=== PATIENT | female | born 1985 | race Caucasian/White ===

== ENCOUNTER 2019-01-06 19:04 | Emergency (ER) | payer MEDICAID ==
[~2019-01-06] VITALS: Ht 157.5 cm; Wt 67.0 kg
[2019-01-06 19:22] VITALS: Ht 157.5 cm; Wt 67.0 kg
[2019-01-06] MEDS ORDERED: BEN25 PO (20:59)
[2019-01-06] MEDS ORDERED: PRED20TA PO (20:59)
[2019-01-06] MEDS ORDERED: predniSONE 20 MG TAB PO ONE (21:00)
[2019-01-06] MEDS ORDERED: DIPHENHYDRAMINE 50 MG INJ IM ONE (21:00)
--- NOTE | 2019-01-06 21:04 | ERD ---
ER Documentation Chief Complaint Chief Complaint gen body rash x 3 days HPI 33-year-old female presents with a itchy rash on her trunk and extremities for last 3 days. She denies any new foods. She is taking unspecified herbal remedy over the last few days. She also complains that she was around a lot of possible bugs or cockroaches in a house recently. She denies shortness of breath, fevers. ROS All systems reviewed and are negative except as per history of present illness. Medications Home Meds Active Scripts Prednisone* (Prednisone*) 20 Mg Tab, 40 MG PO DAILY for 4 Days, TAB Start January 07, 2019 Prov:KARISSA HOLT MD 01/06/19 Diphenhydramine Hcl* (Benadryl*) 25 Mg Cap, 25 MG PO Q6, #20 CAP Prov:KARISSA HOLT MD 01/06/19 Allergies Allergies: Coded Allergies: No Known Drug Allergies (Verified Allergy, Unknown, 01/06/19) PMhx/Soc Medical and Surgical Hx: pt denies Medical Hx, pt denies Surgical Hx Hx Alcohol Use: No Hx Substance Use: No Hx Tobacco Use: No Smoking Status: Never smoker FmHx Family History: No diabetes, No coronary disease, No other Physical Exam Vitals Vital Signs Date Temp Pulse Resp B/P (MAP) Pulse Ox O2 O2 Flow FiO2 Time Delivery Rate 01/06/19 98.0 72 18 123/82 98 19:22 (96) Physical Exam Const: No acute distress Head: Atraumatic Eyes: Normal Conjunctiva ENT: Normal External Ears, Nose and Mouth. Neck: Full range of motion. No meningismus. Resp: Clear to auscultation bilaterally Cardio: Regular rate and rhythm, no murmurs Abd: Soft, non tender, non distended. Normal bowel sounds Skin: No petechiae or purpura. Scattered maculopapular blanching rash on the trunk and extremities. No induration, streaking or vesicles. Back: No midline or flank tenderness Ext: No cyanosis, or edema Neur: Awake and alert Psych: Normal Mood and Affect Results 24 hrs Current Medications Medications Dose Sig/Artem Start Time Status Last (Trade) Ordered Route PRN Stop Time Admin Dose Reason Admin 25 mg ONCE ONCE 01/06/19 DC Diphenhydrami IM 21:00 ne HCl 01/06/19 21:01 (Benadryl) Prednisone 60 mg ONCE ONCE 01/06/19 DC (Prednisone) PO 21:00 01/06/19 21:01 Procedures/MDM Last 3 days. She has no signs of hypoxemia, rest distress, anaphylaxis, any signs or symptoms. She has no evidence of life-threatening rashes or purpura. She likely has a nonspecific allergic reaction or hives type reaction. She was treated with Benadryl 25 mg IM, prednisone 60 mg by mouth and will be continued on prednisone and Benadryl at home with primary care follow-up and return precautions. The patient was stable with no new complaints during the ER course. Clinically, there is no current evidence to suggest meningitis, sepsis, acute abdomen, pneumonia, stroke, acute coronary syndrome, pulmonary embolism, aortic dissection or any other emergent condition appearing to require further evaluation or hospitalization. Patient counseled regarding my diagnostic impression and care plan. Prior to discharge all questions answered. Pt agrees with treatment plan and understands strict return precautions. Pt is instructed to follow up with primary care provider within 24-48 hours. Precautionary instructions provided including instructions to return to the ER if not improving or for any worsening or changing symptoms or concerns. Disclaimer: Inadvertent spelling and grammatical errors are likely due to EHR/dictation software use and do not reflect on the overall quality of patient care. Also, please note that the electronic time recorded on this note does not necessarily reflect the actual time of the patient encounter. Departure Diagnosis: Primary Impression: Rash Condition: Stable Patient Instructions: Dermatitis, Non-Specific Additional Instructions: probablamente un allergia. Cheque otro vez con [place] doctor primario en el proximo [place] or regresa para mas o nueva simptomas. KARISSA HOLT MD Jan 06, 2019 21:04
[2019-01-06 21:36] VITALS: BP 146/82; PULSE 74; RESP 18
== END 2019-01-06 21:36 | disposition home or self-care (01) ==
LOC: FTE 19:04
DX: R21 Rash and other nonspecific skin eruption (principal)
CPT/HCPCS: 96372; J1200; J7512; Z7502

== ENCOUNTER 2019-02-15 12:10 | Emergency (ER) | payer MEDICAID ==
[~2019-02-15] VITALS: Wt 65.0 kg
[~2019-02-15 12:10] MED LIST: BEN25 PO; HYDR-3029 PO; HYDR-3672 PO; PRED20TA PO
[2019-02-15 12:29] VITALS: BP 138/76; PULSE 67; RESP 16
[2019-02-15] MEDS ORDERED: predniSONE 20 MG TAB PO ONE (14:00)
[2019-02-15] MEDS ORDERED: DIPHENHYDRAMINE 25 MG CAP PO ONE (14:00)
== END 2019-02-15 14:21 | disposition home or self-care (01) ==
LOC: FTE 12:10
DX: L29.9 Pruritus, unspecified (principal)
CPT/HCPCS: J7512; Z7502; Z7610; 99283